=== PATIENT | female | born 1985 | race African-American/Black ===

== ENCOUNTER 2016-06-10 07:10 | Outpatient (CLI) | payer OTHER | END 2016-06-10 09:32 | disposition home or self-care (01) | DX: Z34.83 Encounter for supervision of other normal pregnancy, third trimester (principal) ==

== ENCOUNTER 2018-02-20 20:17 | Emergency (ER) | payer OTHER ==
[2018-02-20 20:47] LABS: BILIRUBIN,URINE NEGATIVE (NEGATIVE); GLUCOSE, URINE (UA) NEGATIVE (NEGATIVE); KETONES,URINE (UA) NEGATIVE (NEGATIVE); LEUKOCYTE ESTERASE, URINE NEGATIVE (NEGATIVE); NITRITE,URINE NEGATIVE (NEGATIVE); OCCULT BLOOD,URINE TRACE-INTA (NEGATIVE); PROTEIN,URINE NEGATIVE (NEGATIVE); UROBILINOGEN,URINE 0.2 (NORMAL) E.U./dL (NORMAL)
[2018-02-20 20:48] LABS: CLARITY,URINE CLEAR (CLEAR)
[2018-02-20 20:49] LABS: HCG UR QUAL NEGATIVE; MUDS CUTOFF CONCENTRATIONS CUTOFF CONC BELOW:
[2018-02-20 20:56] LABS: AMPHETAMINE SCREEN,URINE NEGATIVE (NEGATIVE); BENZODIAZEPINES SCREEN, URINE NEGATIVE (NEGATIVE); COCAINE SCREEN URINE NEGATIVE (NEGATIVE); METHADONE SCREEN, URINE NEGATIVE (NEGATIVE); METHAMPHETAMINES SCREEN, URINE NEGATIVE (NEGATIVE); OPIATE SCREEN, URINE NEGATIVE (NEGATIVE); OXYCODONE SCREEN, URINE NEGATIVE (NEGATIVE); PROPOXYPHENE SCREEN, URINE NEGATIVE (NEGATIVE); TRICYCLIC ANTIDEPRESSANT,URINE NEGATIVE (NEGATIVE)
[2018-02-20 21:28] LABS: BASOPHILS % (AUTO) 0.8 %; EOSINOPHILS # (AUTO) 0.1 10^3/uL (0.0-0.7); EOSINOPHILS % (AUTO) 2.1 %; HGB - HEMOGLOBIN 14.9 g/dL (12.0-16.0); LYMPHOCYTES # (AUTO) 2.4 10^3/uL (1.5-3.5); LYMPHOCYTES % (AUTO) 46.4 %; MEAN CORPUSCULAR HEMOGLOBIN 27.5 pg (27.0-31.0); MEAN CORPUSCULAR HGB CONC 32.5 g/dL (32.0-36.0); MEAN CORPUSCULAR VOLUME 84.7 fL (81.0-99.0); MONOCYTES # (AUTO) 0.4 10^3/uL (0.0-1.0); MONOCYTES % (AUTO) 7.2 %; NEUTROPHILS # (AUTO) 2.2 10^3/uL (1.5-6.6); NEUTROPHILS % (AUTO) 43.5 %; PLT - PLATELET COUNT 190 10^3/uL (130-450); RED CELL DISTRIBUTION WIDTH 14.2 % (12.0-15.0); WHITE BLOOD COUNT 5.1 x10^3/uL (4.8-10.8)
[2018-02-20 21:44] LABS: ACETAMINOPHEN < 10 ug/mL (10-30); ALBUMIN 4.5 g/dL (3.2-5.5); ALBUMIN/GLOBULIN RATIO 1.2 (1.0-2.2); ALKALINE PHOSPHATASE 46 IU/L (42-121); ALT ALANINE AMINOTRANSFERASE 24 IU/L (10-60); AST ASPARTATE AMINOTRANSFERASE 24 IU/L (10-42); BILIRUBIN,TOTAL 0.5 mg/dL (0.2-1.0); BUN - BLOOD UREA NITROGEN 23 mg/dL (6-20); CALCIUM 9.3 mg/dL (8.5-10.3); CARBON DIOXIDE - CO2 28 mmol/L (21-32); CHLORIDE 103 mmol/L (101-111); CREATININE 0.9 mg/dL (0.4-1.0); GFR - MDRD 87 (>89); GLUCOSE 84 mg/dL (70-100); LIPASE 33 U/L (22-51); SALICYLATE < 6.0 mg/dL; SODIUM 137 mmol/L (135-145); TOTAL PROTEIN 8.2 g/dL (6.7-8.2)
--- NOTE | 2018-02-20 22:00 | ED Physician Documentation ---
PD HPI MHE - Stated complaint Stated Complaint: SI - Chief complaint Chief Complaint: MHE - History obtained from History obtained from: Patient - History of Present Illness Primary symptom: Depression Timing - onset: How many years ago (4) Contributing factors: Family, Sig other Similar symptoms before: No diagnosis Recently seen: Not recently seen - Additional information Additional information: 32-year-old female who lost her mother at age 17 is complaining of depressive symptoms that have been present for about 4 years following the of her daughter. She has had a second child about 20 months ago and she continues to have problems with court specialist awakening and anhedonia. She has left a note to her indicating to him that this is her problem. This morning there was an incident at the home where the patient yelled that her daughter and her intervened and this apparently was apparently was a trigger for the patient to review her extent of depression. The couple indicate they remain intermittent and have no plans for separation and the patient herself denies any specific suicidal ideation. She did leave a note to her explaining her depression and telling him that she felt he would be better if he found someone that could love her children. Review of Systems Constitutional: denies: Fever Eyes: denies: Decreased vision Ears: denies: Ear pain Nose: denies: Rhinorrhea / runny nose, Congestion Throat: denies: Sore throat Cardiac: denies: Chest pain / pressure, Palpitations Respiratory: denies: Dyspnea, Cough GI: denies: Abdominal Pain, Nausea, Vomiting : denies: Dysuria, Frequency Skin: denies: Rash Musculoskeletal: denies: Neck pain, Back pain, Extremity pain Neurologic: denies: Generalized weakness, Focal weakness, Numbness Psychiatric: reports: Depressed, Insomnia. denies: Suicidal, Homicidal, Hallucinations, Delusions, Anxiety Endocrine: denies: Weight loss, Weight gain PD PAST MEDICAL HISTORY - Past Medical History Past Medical History: No Cardiovascular: None Respiratory: None Neuro: None Endocrine/Autoimmune: None GI: None INSURANCE ACCOUNT EXECUTIVE: None : None HEENT: None Psych: Depression Musculoskeletal: None Derm: None - Past Surgical History Past Surgical History: Yes /INSURANCE ACCOUNT EXECUTIVE: Other - Present Medications Home Medications: Ambulatory Orders Medication Instructions Recorded Confirmed Escitalopram [Lexapro] 10 mg PO DAILY #20 tablet 02/21/18 - Allergies Allergies/Adverse Reactions: Allergies Allergy/AdvReac Type Severity Reaction Status Date / Time No Known Drug Allergies Allergy Verified 02/20/18 20:32 - Social History Does the pt smoke?: No Smoking Status: Never smoker Does the pt drink ETOH?: Yes Does the pt have substance abuse?: No - Immunizations Immunizations are current?: Yes - POLST Patient has POLST: No PD ED PE NORMAL - Vitals Vital signs reviewed: Yes (normal ) - General General: Alert and oriented X 3, No acute distress, Well developed/nourished - HEENT HEENT: Atraumatic, PERRL, EOMI, Other (cerumen in the right left is clear ) - Neck Neck: Supple, no meningeal sign, No bony TTP - Cardiac Cardiac: RRR, No murmur - Respiratory Respiratory: No respiratory distress, Clear bilaterally - Abdomen Abdomen: Soft, Non tender - Back Back: No CVA TTP, No spinal TTP - Derm Derm: Normal color, Warm and dry, No rash - Extremities Extremities: No deformity, No edema - Neuro Neuro: Alert and oriented X 3, 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, No motor deficit, No sensory deficit, Normal speech Eye Opening: Spontaneous Motor: Obeys Commands Verbal: Oriented GCS Score: 15 - Psych Psych: Normal mood, Normal affect Results - Vitals Vitals: Vital Signs - 24 hr 02/20/18 02/21/18 20:20 00:23 Temperature 36.5 C Heart Rate 70 80 Respiratory 16 14 Rate Blood Pressure 120/68 126/83 H O2 Saturation 100 100 Oxygen O2 Source Room air - Labs Labs: Laboratory Tests 02/20/18 02/20/18 02/20/18 20:38 20:38 21:00 WBC 5.1 RBC 5.40 Hgb 14.9 Hct 45.7 MCV 84.7 MCH 27.5 MCHC 32.5 RDW 14.2 Plt Count 190 MPV 10.0 Neut # (Auto) 2.2 Lymph # (Auto) 2.4 [place] # (Auto) 0.4 Eos # (Auto) 0.1 Baso # (Auto) 0.0 Absolute Nucleated RBC 0.00 Nucleated RBC % 0.1 Sodium Potassium Chloride Carbon Dioxide Anion Gap BUN Creatinine Estimated GFR (MDRD) Glucose Calcium Total Bilirubin AST ALT Alkaline Phosphatase Total Protein Albumin Globulin Albumin/Globulin Ratio Lipase TSH Urine Color YELLOW Urine Clarity CLEAR Urine pH 6.0 Ur Specific Pierce 1.025 Urine Protein NEGATIVE Urine Glucose (UA) NEGATIVE Urine Ketones NEGATIVE Urine Occult Blood TRACE-INTA Urine Nitrite NEGATIVE Urine Bilirubin NEGATIVE Urine Urobilinogen 0.2 (NORMAL) Ur Leukocyte Esterase NEGATIVE Ur Microscopic Review NOT INDICATED Urine Culture Comments NOT INDICATED Urine HCG, Qual NEGATIVE Salicylates Urine Opiates Screen NEGATIVE Ur Oxycodone Screen NEGATIVE Urine Methadone Screen NEGATIVE Ur Propoxyphene Screen NEGATIVE Acetaminophen Ur Barbiturates Screen NEGATIVE Ur Tricyclics Screen NEGATIVE Ur Phencyclidine Scrn NEGATIVE Ur Amphetamine Screen NEGATIVE U Methamphetamines Scrn NEGATIVE U Benzodiazepines Scrn NEGATIVE Urine Cocaine Screen NEGATIVE U Cannabinoids Screen NEGATIVE Ethyl Alcohol 02/20/18 02/20/18 21:00 21:00 WBC RBC Hgb Hct MCV MCH MCHC RDW Plt Count MPV Neut # (Auto) Lymph # (Auto) [place] # (Auto) Eos # (Auto) Baso # (Auto) Absolute Nucleated RBC Nucleated RBC % Sodium 137 Potassium 3.7 Chloride 103 Carbon Dioxide 28 Anion Gap 6.0 BUN 23 H Creatinine 0.9 Estimated GFR (MDRD) 87 L Glucose 84 Calcium 9.3 Total Bilirubin 0.5 AST 24 ALT 24 Alkaline Phosphatase 46 Total Protein 8.2 Albumin 4.5 Globulin 3.7 Albumin/Globulin Ratio 1.2 Lipase 33 TSH 1.26 Urine Color Urine Clarity Urine pH Ur Specific Pierce Urine Protein Urine Glucose (UA) Urine Ketones Urine Occult Blood Urine Nitrite Urine Bilirubin Urine Urobilinogen Ur Leukocyte Esterase Ur Microscopic Review Urine Culture Comments Urine HCG, Qual Salicylates < 6.0 Urine Opiates Screen Ur Oxycodone Screen Urine Methadone Screen Ur Propoxyphene Screen Acetaminophen < 10 L Ur Barbiturates Screen Ur Tricyclics Screen Ur Phencyclidine Scrn Ur Amphetamine Screen U Methamphetamines Scrn U Benzodiazepines Scrn Urine Cocaine Screen U Cannabinoids Screen Ethyl Alcohol < 5.0 Departure - Departure Disposition: 01 Home, Self Care Clinical Impression: Depression Qualifiers: Depression Type: major depressive disorder Major depression recurrence: recurrent Active/Remission status: currently active Major depression episode severity: severe Psychotic features: without psychotic features Qualified Code(s): F33.2 - Major depressive disorder, recurrent severe without psychotic features Instructions: ED Depression Follow-Up: SAE HERNANDEZ MD [Primary Care Provider] - Prescriptions: Escitalopram [Lexapro] 10 mg PO DAILY #20 tablet Comments: Today Dr. Du has some recommendations for you regarding treatment of your depression. She has recommended we start Lexapro 10 mg daily and that you follow-up with your primary care doctor for outpatient management of your medication. She has also recommended weekly therapy with your therapist. She recommends that you lock up any medications you have or or get rid of them and refrain from any alcohol while you are on your medication. We are here 24 hours a day if you have any dark thoughts call 911 or come to the emergency department.
--- NOTE | 2018-02-21 01:43 | TELEPSYCH PHYS NOTE ---
Telepsych Note - CHIEF COMPLAINT/HX OF PRESENT ILLNESS Cheif Complaint and History of Present Illness: Pt brought in by her after leaving him a note expressing her deep depression. She admits to suicidal thoughts and even thinking of overdosing but denied intent, stating she wants help before it gets that far. Her interjects stating he made patient come in for help. Pt c/o feeling depressed, hopeless and having suicidal thoughts. She says she has felt this way before but denied ever acting on it or any form of self harm. She denied thoughts of harm to others or h/o violence. Pt denied s/o delphine or perceptual disturbances. She denied h/o trauma or abuse. She denied frequent use of alcohol or ever using illicit substances. Pt c/o poor sleep, fatigue but normal appetite. She has a therapist but has only been meeting monthly by teleconference. - SI/HI/SELF HARM SI/HI/SELF HARM (CURRENT OR HISTORY OF):: SI SI/HI/Self Harm Text (Current or History of):: NO h/o suicide attempts or sib - VIOLENCE/LEGAL/COLLATERAL Violence - Legal - Collateral: No thoughts of harm to others or h/o violence. - PSYCHIATRIC HX/TREATMENT HX Psychiatric: Depression Psychiatric/Treatment Hx Other: Pt was in therapy for anxiety weekly but her therapist moved. She continues to see the same therapist by teleconference monthly. No hospitalizations. - DRUG/ALCOHOL HX Substance use/abuse/alcohol text: Pt admits to occasional alcohol but no blackouts, dTs or sz. NO illicit drug use - MEDICAL HX Does the pt have a hx of MRSA?: No Neurological History: None Eyes, Ears, Nose, Throat: None Cardiovascular: None Respiratory: None Skin: None Endocrine/Autoimmune: None Gastrointestinal: None Is Patient ?: No Urinary: None Musculoskeletal: None Blood Disorders: None - SURGICAL HX Gynecologic: Other - HOME MEDICATIONS Home Meds (as last confirmed): Patient History Medication Instructions Recorded Confirmed No Known Home Medications 02/20/18 02/20/18 - ALLERGIES Allergies (as last confirmed): Allergies Allergy/AdvReac Type Severity Reaction Status Date / Time No Known Drug Allergies Allergy Verified 02/20/18 20:32 - FAMILY PSYCH/SUICIDE/SOCIAL HX-MENTAL Family - Suicide - Social Hx and Mental Status Exam: Pt says she doesn't really know her dads side of the family. Her mother used drugs and her grandfather was an alcoholic. NO known suicides. SH: Pt has been with her for 8yrs. They have 2 children, ages 4y/o and 20mo old. PT denied h/o trauma or abuse. She said her is supportive, she has a good friend and attends a MOPS group at [employer]. SHe has a BA and is a stay home mom. She has no experience. NO access to guns and no legal issues. MSE: Pt presents well groomed with [facility] [place]. She was alert and oriented. Her speech was nl r/r/vol. She expressed feeling depressed with a congruent, at times tearful affect. Her thought process was linear and goal directed. She did not appear manic or internally preoccupied. Insight and judgment were fair. - PATIENT PROBLEM LIST (1) Depression Qualifiers: Depression Type: major depressive disorder Major depression recurrence: recurrent Active/Remission status: currently active Major depression episode severity: severe Psychotic features: without psychotic features Qualified Code(s): F33.2 - Major depressive disorder, recurrent severe without psychotic features - TREATMENT/PHARMACOLOGICAL RECOMMENDATION Treatment - Pharmacological - Therapy Recommendations: Pt is a 32y/o mf with h/o depression with suicidal thoughts. Pt said she has thoughts of overdosing but would not want her family to find her like that. She denied intent to act on these thoughts, stating she just feels that sad and hopeless. Pt said she wrote the note to her as a cry for help and he made her come in for assessment and possibly medication recommendations. Pt said she has felt suicidal in the past but denied ever acting on it or any h/o harm to self or others. She does not know her fathers side of the family but substance issues run on her mothers side. NO known suicides. Pt rarely drinks alcohol and denied use of illicit drugs. She has never been on medication for her depression but did seek out therapy for her anxiety. She used to go weekly but had only been seen monthly recently as her therapist moved away and pt now sees her through teleconference. Pt says she feels she has a good support system and that she would tell her before acting on her dark thoughts. Her said he feels she would tell him and that she would be safe to return home with him. When asked where she sees herself in a year, pt said they will be moving to [place]. After reviewing the note the patient left her , my recommendation would be for inpatient to start meds and provide a secure environment. However, Pt is future oriented, she has a good support system, she has no h/o self harm, no substance issues, no family hx of suicide, no intent to act on thoughts and said she feels safe to return home as does her . Therefore she would not meet commitment criteria. My recommendations are as follows: 1. Recommend start Lexapro 10mg po qd 2. refrain from alcohol and take meds only as prescribed 3. Get rid of or lock up any other medications in the home 4. Call 911 or return to the ED with any further thoughts of harm to self or others. 5. Follow up with outpatient for further medication management. 6. Follow up with therapy on weekly basis if possible to assist with coping and support. - TIME SPENT & PROVIDER LOCATION Telepsych consultation conducted via videoconferencing: Yes List names and roles of persons who participated in consult: Patient and her Telepsych Provider Location: Belkis Escobar MD [place] Time Telepsych consult began: 04:00 Time Telepsych consult completed: 05:00
[2018-02-21 02:45] VITALS: BP 111/78
== END 2018-02-21 02:45 | disposition home or self-care (01) ==
LOC: ED 20:17
DX: F33.2 Major depressive disorder, recurrent severe without psychotic features (principal)
CPT/HCPCS: 36415; 80053; 80306; 80307; 80320; 80329; 81003; 81025; 83690; 84443; 85025; 99283; G0426; Q3014; 81001; 87086